=== PATIENT | male | born 1990 | race American Indian/Alaskan Native ===

== ENCOUNTER 2019-10-22 20:45 | Emergency (ER) | payer BC ==
[2019-10-22] MEDS ORDERED: MORPHINE 4 MG/1 ML INJ IM ONE (21:00)
[2019-10-22] MEDS ORDERED: TETRACAINE 0.5% OPHTH SOLN 4ML OS STA (21:00)
[2019-10-22] MEDS ORDERED: FLUORESCEIN 1 MG STRIP OP ONE ×2 (21:00→21:03)
[2019-10-22] MEDS ORDERED: LIDOCAINE (1%) 10 MG/1 ML VIAL 20 ML MDV INFILTRATI ONE (21:01)
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
[2019-10-22] MEDS ORDERED: TETRACAINE 0.5% OPHTH SOLN 4ML ONE (21:03)
[2019-10-22] MEDS: SODIUM CHLORIDE 0.9% IRR 500 ML BOTTLE IR ONE ×2 (21:23→23:24)
[2019-10-22] MEDS ORDERED: DIPHtheria,PERTUSSIS(ACELL),TETANUS VACCINE/PF 0.5 ML VIAL IM ONE (21:44)
--- NOTE | 2019-10-22 21:44 | Cat Scan Report ---
CT HEAD WITHOUT CONTRAST INDICATION / CLINICAL INFORMATION: closed head injury, left eye pain. TECHNIQUE: All CT scans at this location are performed using CT dose reduction for ALARA by means of automated e xposure control. COMPARISON: None available. FINDINGS: HEMORRHAGE: None. EXTRA-AXIAL SPACES: Normal in size and morphology for the patient's age. VENTRICULAR SYSTEM: Normal in size and morphology for the patient's age. CEREBRAL PARENCHYMA: No significant abnormality. No acute territorial infarct. MIDLINE SHIFT OR HERNIATION: None. CEREBELLUM / BRAINSTEM: No significant abnormality. ORBITS: Normal as visualized. SOFT TISSUES of HEAD: Small soft tissue laceration and subcutaneous emphysema over the left bridge of nose. CALVARIUM: No significant abnormality. PARANASAL SINUSES / MASTOID AIR CELLS: Normal as visualized. ADDITIONAL FINDINGS: None. IMPRESSION: 1. No acute intracranial abnormality. 2. Small soft tissue laceration and subcutaneous emphysema over the left bridge of the nose. Signer Name: Tristan Gutierrez MD Signed: 10/22/2019 9:39 PM Workstation Name: [id number]
[2019-10-22 23:00] VITALS: BP 118/66
== END 2019-10-22 23:07 | disposition short-term general hospital (02) ==
LOC: ED 20:45
DX: S01.112A Laceration without foreign body of left eyelid and periocular area, initial encounter (principal); S09.90XA Unspecified injury of head, initial encounter; Z79.1 Long term (current) use of non-steroidal anti-inflammatories (NSAID); Z79.899 Other long term (current) drug therapy; V49.59XA Passenger injured in collision with other motor vehicles in traffic accident, initial encounter; Y93.89 Activity, other specified; Y92.410 Unspecified street and highway as the place of occurrence of the external cause; Y99.8 Other external cause status
CPT/HCPCS: 70450; 90471; 90715; 96372; 99285; J2270